=== PATIENT | female | born 1965 | race Caucasian/White ===

== ENCOUNTER → 2020-12-12 | Outpatient (CLI) | payer OTHER | LOC: MAMO 12:50 | DX: Z12.31 Encounter for screening mammogram for malignant neoplasm of breast (principal) | CPT/HCPCS: 77063; 77067 ==

== ENCOUNTER → 2020-12-13 | Outpatient (CLI) | payer OTHER | LOC: KOH-I 13:00 | DX: Z78.0 Asymptomatic menopausal state (principal) | CPT/HCPCS: 77080 ==